=== PATIENT | female | born 1990 | race Hispanic/Latino ===

== ENCOUNTER 2018-04-24 20:48 | Emergency (ER) | payer OTHER ==
[2018-04-24 21:01] VITALS: BP 128/84; PULSE 85; RESP 16; TEMP 98.2; O2SAT 99
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
[2018-04-24] MEDS ORDERED: Tdap Vaccine 0.5 ml Vial (10-64 yrs) IM ONE ×2 (21:26→21:42)
== END 2018-04-24 22:00 | disposition home or self-care (01) ==
LOC: H.ER 20:48
DX: S61.213A Laceration without foreign body of left middle finger without damage to nail, initial encounter (principal); W26.0XXA Contact with knife, initial encounter